=== PATIENT | male | born 1970 | race Caucasian/White ===

== ENCOUNTER → 2018-06-24 | Outpatient (CLI) | payer OTHER, BC | LOC: RAD 09:47 | DX: M17.0 Bilateral primary osteoarthritis of knee (principal) ==

== ENCOUNTER → 2019-09-22 | Outpatient (CLI) | payer OTHER, BC | END | disposition still patient (30) | LOC: RAD 08:00 | DX: Z01.818 Encounter for other preprocedural examination (principal); M51.36 Other intervertebral disc degeneration, lumbar region; M41.86 Other forms of scoliosis, lumbar region; M17.12 Unilateral primary osteoarthritis, left knee; Z96.651 Presence of right artificial knee joint ==

== ENCOUNTER 2020-05-24 13:00 | Outpatient (RCR) | payer OTHER, BC | END 2020-05-24 13:30 | disposition still patient (30) | LOC: PT 13:00 | DX: Z48.89 Encounter for other specified surgical aftercare (principal); Z96.651 Presence of right artificial knee joint ==

== ENCOUNTER 2020-07-04 10:30 | Outpatient (RCR) | payer OTHER, BC | END 2020-07-04 11:15 | disposition still patient (30) | LOC: PT 10:30 | DX: Z47.1 Aftercare following joint replacement surgery (principal); Z96.651 Presence of right artificial knee joint ==

== ENCOUNTER → 2022-02-22 | Outpatient (CLI) | payer OTHER, BC | LOC: RAD 11:00 | DX: R10.9 Unspecified abdominal pain (principal); R30.9 Painful micturition, unspecified; R31.9 Hematuria, unspecified ==

== ENCOUNTER → 2023-01-23 | Outpatient (CLI) | payer OTHER | LOC: RAD 17:24 | DX: M48.05 Spinal stenosis, thoracolumbar region (principal); M48.07 Spinal stenosis, lumbosacral region; M54.16 Radiculopathy, lumbar region ==

== ENCOUNTER → 2024-06-18 | Outpatient (CLI) | payer OTHER | LOC: RAD 11:24 | DX: Z01.818 Encounter for other preprocedural examination (principal) ==

== ENCOUNTER 2024-07-09 09:02 | Outpatient (RCR) | payer OTHER | END 2024-08-05 | disposition home or self-care (01) | LOC: PT | DX: T84.092D Other mechanical complication of internal right knee prosthesis, subsequent encounter (principal) ==